=== PATIENT | male | born 1975 | race African-American/Black ===

== ENCOUNTER 2016-10-13 05:55 | Emergency (ER) | payer BC ==
[~2016-10-13] VITALS: Ht 172.7 cm; Wt 109.4 kg
[~2016-10-13 05:55] MED LIST: ONDA4TAB7 SL
[2016-10-13 05:57] VITALS: Ht 172.7 cm; Wt 109.4 kg
[2016-10-13] MEDS ORDERED: IBUP-1427 PO (06:20)
[2016-10-13] MEDS ORDERED: DIPH25CA65 PO (06:20)
[2016-10-13] MEDS ORDERED: SODIUM CHLORIDE 0.9% 1000ML 1,000 ML IV STA ×2 (06:40)
[2016-10-13] MEDS ORDERED: ACETAMINOPHEN 325 MG TAB PO ONE (06:45)
[2016-10-13] MEDS ORDERED: KETOROLAC TROMETHAMINE 30 MG/ML VIAL IV ONE (06:45)
[2016-10-13] MEDS ORDERED: ONDANSETRON INJ 2 MG/ML 2 ML VIAL IV ONE (06:45)
--- NOTE | 2016-10-13 06:49 | EMERGENCY ROOM VISIT NOTE ---
History Report prepared by Marjan: Rebecca Tejada Under the Supervision of: Madeleine GriffithsO. First contact with patient: 06:33 Chief Complaint: FLU LIKE SX Stated Complaint: CHILLS,BODYACHE,HEADACHE,SORETHROAT,DEHYDRATED History of Present Illness The patient is a 40 year old male who presents to the Emergency Room with complaints of a persistent fever that began yesterday. He also complains of body aches, a headache, sore throat, and nausea since yesterday. He currently has some diffuse abdominal pain which has been constant. He took 600 mg ibuprofen about 7.5 hours STOGIE PACKER and Benadryl about 5.5 hours STOGIE PACKER. Denies ear ache , runny nose,neck pain, cough, rash, or other complaints. No recent travel. He did not get the flu shot this year. Per patient's significant other, the patient 's son attends daycare and has exhibited some flu-like symptoms. Source of History: patient Onset: yesterday Position: other (global) Timing: other (persistent) Associated Symptoms: + abdominal pain, + nausea, + sorethroat, No cough, No rash Note: Other symptoms: body aches Review of Systems See HPI for pertinent positives & negatives. A total of 10 systems reviewed and were otherwise negative. Past Medical & Surgical Medical Problems: (1) No Known Active Medical Problems Family History Cancer Diabetes mellitus Heart disease Hypertension Social History Smoking Status: Former Smoker Alcohol Use: none Marital Status: Housing Status: lives with family Occupation Status: employed Current/Historical Medications Scheduled PRN Diphenhydramine Hcl (Benadryl Allergy), 2 CAP PO HS PRN for Sleep Ibuprofen Tab (Motrin), 600 MG PO Q6H PRN for Pain or Fever Ondasetron Odt (Zofran Odt), 4 MG SL Q6H PRN for Nausea Allergies Coded Allergies: No Known Allergies (Unverified , 10/13/16) Physical Exam Vital Signs Date Time Temp Pulse Resp B/P Pulse Ox O2 Delivery O2 Flow Rate FiO2 10/13/16 08:12 37.8 110 22 133/71 95 10/13/16 07:52 38.1 110 22 133/71 95 Room Air 10/13/16 05:57 38.1 79 21 128/83 96 Room Air Physical Exam GENERAL: The patient is a pleasant 40 year old male in mild distress. VITALS: Febrile, mildly tachypneic, normal pulse oximetry on room air. Vital signs otherwise normal. EARS: TMS dull. THROAT: Minimally injected, no exudates or tonsillar hypertrophy. Airway is patent. NECK: Supple, nontender, no lymphadenopathy or nuchal rigidity. THORAX : Symmetrical and nontender to palpation without deformity or palpable crepitus. LUNGS : Clear without wheezing, rhonchi, or rales HEART: Regular rate and rhythm ABDOMEN: Soft, minimal epigastric tenderness without guarding, rigidity, or rebound tenderness. Bowel sounds are present in all 4 quadrants. There are no palpable masses or organomegaly. No CVA tenderness. Femoral pulses are symmetrical EXTREMITIES : Without deformity or point tenderness. There are no palpable cords, edema, or erythema.. NEUROLOGIC: Intact without focal deficits SKIN: No rash. Medical Decision & Procedures Laboratory Results 10/13/16 06:58 Red Blood Count 4.95, Mean Corpuscular Volume 82.2, Mean Corpuscular Hemoglobin 28.9, Mean Corpuscular Hemoglobin Concent 35.1, Mean Platelet Volume 10.0, Neutrophils (%) (Auto) 80.4, Lymphocytes (%) (Auto) 12.8, Monocytes (%) (Auto) 6.3, Eosinophils (%) (Auto) 0.2, Basophils (%) (Auto) 0.1, Neutrophils # (Auto) 12.33, Lymphocytes # (Auto) 1.96, Monocytes # (Auto) 0.97, Eosinophils # (Auto) 0.03, Basophils # (Auto) 0.02 10/13/16 06:58 Test 10/13/16 06:58 10/13/16 07:14 White Blood Count 15.34 K/uL (4.8-10.8) Red Blood Count 4.95 M/uL (4.7-6.1) Hemoglobin 14.3 g/dL (14.0-18.0) Hematocrit 40.7 % (42-52) Mean Corpuscular Volume 82.2 fL (80-100) Mean Corpuscular Hemoglobin 28.9 pg (25-34) Mean Corpuscular Hemoglobin Concent 35.1 g/dl (32-36) Platelet Count 225 K/uL (130-400) Mean Platelet Volume 10.0 fL (7.4-10.4) Neutrophils (%) (Auto) 80.4 % Lymphocytes (%) (Auto) 12.8 % Monocytes (%) (Auto) 6.3 % Eosinophils (%) (Auto) 0.2 % Basophils (%) (Auto) 0.1 % Neutrophils # (Auto) 12.33 K/uL (1.4-6.5) Lymphocytes # (Auto) 1.96 K/uL (1.2-3.4) Monocytes # (Auto) 0.97 K/uL (0.11-0.59) Eosinophils # (Auto) 0.03 K/uL (0-0.5) Basophils # (Auto) 0.02 K/uL (0-0.2) RDW Standard Deviation 39.6 fL (36.4-46.3) RDW Coefficient of Variation 13.1 % (11.5-14.5) Immature Granulocyte % (Auto) 0.2 % Immature Granulocyte # (Auto) 0.03 K/uL (0.00-0.02) Anion Gap 9.0 mmol/L (3-11) Est Creatinine Clear Calc Drug Dose 109.2 ml/min Estimated GFR () 98.2 Estimated GFR (Non- 84.7 BUN/Creatinine Ratio 8.9 (10-20) Calcium Level 9.0 mg/dl (8.5-10.1) Total Bilirubin 0.9 mg/dl (0.2-1) Aspartate Amino Transf (AST/SGOT) 18 U/L (15-37) Alanine Aminotransferase (ALT/SGPT) 48 U/L (12-78) Alkaline Phosphatase 42 U/L (45-117) Total Protein 7.6 gm/dl (6.4-8.2) Albumin 4.0 gm/dl (3.4-5.0) Globulin 3.6 gm/dl (2.5-4.0) Albumin/Globulin Ratio 1.1 (0.9-2) Lipase 103 U/L (73-393) Influenza Type A Antigen Neg for Influ A (NEG) Influenza Type B Antigen Neg for Influ B (NEG) Laboratory studies as stated above per my review. Medications Administered Medications (Trade) Dose Ordered Sig/Kadie Route Start Time Stop Time Status Last Admin Dose Admin Sodium Chloride 1,000 ml @ 999 mls/hr Q1H1M STAT IV 10/13/16 06:40 10/13/16 07:40 DC 10/13/16 07:10 999 MLS/HR Sodium Chloride (Nss 1000ml) 1,000 ml @ 500 mls/hr Q2H STAT IV 10/13/16 06:40 10/13/16 08:39 DC 10/13/16 07:10 500 MLS/HR Ondansetron HCl (Zofran Inj) 4 mg NOW ONCE IV 10/13/16 06:45 10/13/16 06:46 DC 10/13/16 07:10 4 MG Ketorolac Tromethamine (Toradol Inj) 30 mg NOW ONCE IV 10/13/16 06:45 10/13/16 06:46 DC 10/13/16 07:10 30 MG Acetaminophen (Tylenol Tab) 650 mg NOW ONCE PO 10/13/16 06:45 10/13/16 06:46 DC 10/13/16 07:11 650 MG ED Course : 0636: The patient was evaluated in room B6. A complete history and physical examination was performed. On examination he appeared mildly ill and was complaining of diffuse myalgias,abdominal pain and a sore throat. He did have mild tenderness to the upper abdomen but did not have any peritoneal or obstructive findings. An IV of normal saline was established and he was hydrated with IV fluids. He was medicated with 4 mg of IV Zofran, 30 mg of IV Toradol and 650 mg of oral Tylenol with improvement He underwent the above diagnostic workup. CBC shows a leukocytosis. Chem profile and lipase are within normal limits except for mild hyperglycemia which is not felt to be clinically significant. Strep screen is negative. Influenza test is negative. This is a 40-year-old gentleman who presents with viral-like symptoms associated with fever, sore throat and abdominal pain. At this time workup is not suggestive of acute influenza infection, strep throat, or pancreatitis. He does have leukocytosis consistent with his illness and dehydration. Patient is being discharged home in the company of his , with instructions on symptomatic care. He is to continue taking Tylenol and/or ibuprofen for pain and fever. He has been provided a prescription for Zofran to use as needed. He should have close outpatient follow-up with his personal physician if symptoms persist. Return if worsening symptoms or concerns. Patient and his are comfortable with this treatment plan. 0640: Ordered NSS 1000 ml @ 500 mls/hr IV, NSS 1000 ml @ 999 mls/hr IV, Tylenol Tab 650 mg PO, Toradol Inj 30 mg IV, Zofran Inj 4 mg IV. 0742: I reassessed the patient. He was sleeping and feeling better. 0759: Reevaluated the patient. Discussed results and discharge instructions; He verbalized understanding and agreement. The patient was discharged home. Medical Decision EMR, nurse's notes, diagnostic studies personally reviewed Differential diagnosis-see above The chart was completed utilizing [employer] Speech Voice Recognition Software. Grammatical errors, random word insertions, pronoun errors, and incomplete sentences are an occasional consequence of this system due to software limitations, ambient noise, and hardware issues. Any formal questions or concerns about the content, text, or information contained within the body of this dictation should be directly addressed to the physician for clarification. Impression Primary Impression: Febrile illness Additional Impressions: Pharyngitis Abdominal pain Scribe Attestation The scribe's documentation has been prepared under my direction and personally reviewed by me in its entirety. I confirm that the note above accurately reflects all work, treatment, procedures, and medical decision making performed by me. Departure Information Dispostion Home / Self-Care Prescriptions Ondasetron Odt (ZOFRAN ODT) 4 Mg Tab 4 MG SL Q6H Y for Nausea, #6 TAB Prov: Inés Moulton,D.O. 10/13/16 Referrals No Doctor, Assigned (PCP) Forms HOME CARE DOCUMENTATION FORM, IMPORTANT VISIT INFORMATION Patient Instructions Abdominal Pain - [facility], Fever - [facility], [facility], Sore Throat - [facility] Additional Instructions Rest, keep well-hydrated Take Tylenol and/or ibuprofen for pain and fever 1 Zofran, dissolve your tongue, every 4-6 hours as needed for nausea Follow-up with your family doctor symptoms persist Return if worsening symptoms or concerns Problem Qualifiers
[2016-10-13 07:09] LABS: BASO % 0.1 %; BASO ABS # 0.02 K/uL (0-0.2); COMPLETE YES; EOS % 0.2 %; HEMATOCRIT 40.7 % (42-52); IG% 0.2 %; LYMPH % 12.8 %; LYMPH ABS # 1.96 K/uL (1.2-3.4); MEAN CELL VOLUME 82.2 fL (80-100); MEAN CORPUSCULAR HEMOGLOBIN 28.9 pg (25-34); MEAN CORPUSCULAR HGB CONC 35.1 g/dl (32-36); MONO % 6.3 %; NEUT % 80.4 %; PLATELET COUNT 225 K/uL (130-400); RED BLOOD COUNT 4.95 M/uL (4.7-6.1); WHITE BLOOD COUNT 15.34 K/uL (4.8-10.8)
[2016-10-13 07:24] LABS: BUN/CREATININE RATIO 8.9 (10-20); CREATININE 1.1 mg/dl (0.60-1.40); POTASSIUM 3.9 mmol/L (3.5-5.1)
[2016-10-13 07:28] LABS: ALB/GLOB RATIO 1.1 (0.9-2)
[2016-10-13] MEDS ORDERED: ONDA4TAB10 SL (08:03)
[2016-10-13 08:12] VITALS: BP 133/71; PULSE 110; TEMP 37.8; O2SAT 95
--- NOTE | 2016-10-14 15:43 | Pharmacy Progress Note ---
ED Pharmacist Culture FollowUp Date of Service: Oct 14, 2016. Called patient regarding throat culture with Group A Strep. Prescription for penicillin V 500 mg po BID x 10 days called to [facility] at the patient's request. Case discussed with Dr. Pace, who is the prescribing provider.
== END 2016-10-13 08:14 | disposition home or self-care (01) ==
LOC: C.EDB 05:56
DX: R50.9 Fever, unspecified (principal); J02.9 Acute pharyngitis, unspecified; R10.9 Unspecified abdominal pain; Z83.3 Family history of diabetes mellitus; Z82.49 Family history of ischemic heart disease and other diseases of the circulatory system; Z87.891 Personal history of nicotine dependence

== ENCOUNTER → 2017-08-05 | Outpatient (CLI) | payer OTHER ==
[~2017-08-05] VITALS: Ht 172.7 cm; Wt 106.4 kg
[~2017-08-05] MED LIST changes: +DIPH25CA65 PO; +IBUP-1427 PO; -ONDA4TAB7 SL
[2017-08-05 15:17] VITALS: BP 116/108; PULSE 81; BMI 35.4
[2017-08-05 15:41] VITALS: BP 146/108; PULSE 81; Ht 172.7 cm; Wt 106.4 kg
[2017-08-05 15:42] VITALS: BP 145/105; PULSE 75
== END | disposition home or self-care (01) ==
LOC: C.NEUR 14:40
PROVIDERS: ATTEND Internal Medicine Pulmonary Disease
DX: G47.33 Obstructive sleep apnea (adult) (pediatric) (principal)

== ENCOUNTER → 2017-08-23 | Outpatient (CLI) | payer OTHER ==
--- NOTE | 2017-08-24 06:07 | PAP/PSG TECHNICIAN REPORT ---
[facility] Pedigree Researcher Polysomnogram Report Study name: None Report date: 08/24/2017 Study date: 08/23/2017 Referring Physician: Dr. Skip Julien DO Name: ISMAEL RAMESH Interpreting Physician: Skip Julien D.O. Date of : 1975 Pedigree Researcher: SOPHIA Staples. Sex: Male Age: 41 StudyType: PSG Weight: 234.5 lbs Height: 41 years, Height 5' 8.25" Neck Circum: 18.5 inches BMI: 35.39 Medications: Atorvastatin Patient History 41 yr. old male here for a diagnostic sleep study. Patient complains of witnessed apneas, loud snoring, and wakes up gasping for air. ESS 01/09 Parameters Monitored NPSG: E1-M2, E2-M1, Fp1-M2, Fp2-M1, F3-M2, F4-M2, F4-M1, C3-M2, C4-M2, C4-M1, O1-M2, O2-M2, O2-M1, T3-M2, T4-M1, P3-M2, P4-M1, CHIN1, CHIN2, HR, EKG, Legs, PFLOW, SNOR, FLOW, CFLOW, Tidal Volume, THOR, ABDO, SpO2, PLTH, CPRESS, ETCO2 Wave, ETCO2, pH Sleep Architecture Sleep Stages Time at Lights Off 10:08:44 PM STAGES Time (min.) TST (%) Time at Lights On 5:34:44 AM Wake 100.5 -- Total Recording Time (TRT) 445.50 min. N1 48.0 14 Total Sleep Period (TSP) 388.0 min. N2 222.0 64 Total Sleep Time (TST) 345.0min. N3 18.5 5 Awake Time 100.5 min. REM 56.5 16 Wake after Sleep Onset 43.5 min. Sleep Efficiency (SE) 77 % Sleep Onset Latency (KONRAD) 57.5 min. Number of Stage 1 Shifts None Awakenings 19 Stage Changes 104 Number of REM periods 7 REM 56.5 16 REM Latency 135.5 min. NREM 288.5 84 Body Position Analysis Supine Right Left Side Prone Vertical Total Sleep Time (min.) 147.3 192.5 64.0 256.47 0.0 2.4 Total Sleep Time (%) 26% 56% 19% 74 0% N/A% Total Sleep Time REM (min.) 0.0 32.0 24.5 None 0.0 0.0 Total Sleep Time NREM (min.) 88.5 160.5 39.5 None 0.0 0.0 Intermittent Wake (min.) 58.7 36.2 3.2 None 0.0 2.4 Total Sleep Period (%) 27% None None None None None Arousals Myoclonus (PLM) * Events Count Index Events Count Index Spontaneous 15 3 Events Awake (PLMW) 106 63.3 Respiratory 6 1.2 Events Asleep w/ Arousal (PLMA) 14 2.4 PLM 14 2 Events Asleep w/o Arousal (PLMS) 29 5.0 Snoring 27 5 Total Asleep 43 7.5 Total 62 11 Total 149 20 Respiratory Analysis * CA OA MA CH H RERA Total Count 0 1 0 0 52 0 53 Index 0.0 0.2 0.0 0 9.0 0 9.2 Mean Duration 0.0 12.6 0.0 0.00 25.4 0.0 25.2 Longest Duration 0.0 12.6 0.0 0.00 0.0 0.0 66.0 Respiratory Event Summary Total Supine ~Supine Right Left Prone REM NREM Apneas Count 1 1 0 0 0 N/A 0 1 Index 0.2 1 0 0.0 0.0 N/A 0 0 Hypopneas (4% Desat) Count 52 38 14 9 5 N/A 10 42 Index 9.0 25.8 3 2.8 4.7 N/A 10.6 8.7 Apneas & All Hypopneas Count 53 39 14 9 5 N/A 10 43 Index 9.2 26 3 3 5 N/A 10.6 8.9 Respiratory Events (Director Of Advertising Sales+All Hyp+RERA) Count 53 39 14 9 5 N/A 10 43 Index 9.2 26 3 2.8 4.7 N/A 10.6 8.9 Respiratory Related Arousal Count 6 39 1 0 1 N/A 0 7 Index 1.2 4 0 0 1 N/A 0 1 Snoring Analysis Supine Right Left Prone REM NREM Total Snore duration 40.6 min Snores count 240 1,317 211 N/A 72 1,696 1,768 Snore mean duration 1.4 Sec Snores index 163 411 198 N/A 76.5 352.7 307.5 TST with snoring (%) 11.8% Desaturation Event Summary: Minimum %SpO2 Event Count Mean/Min/Max Duration(sec.) Desaturation Index % Time In Bed > 90 58 30.1 / 8.0 / 60.0 8.0 98.3 86 - 90 0 N/A 0.0 1.7 81 - 85 0 N/A 0.0 0.0 76 - 80 0 N/A 0.0 0.0 71 - 75 0 N/A 0.0 0.0 66 - 70 0 N/A 0.0 0.0 61 - 65 0 N/A 0.0 0.0 56 - 60 0 N/A 0.0 0.0 51 - 55 0 N/A 0.0 0.0 < 50 0 N/A 0.0 0.0 Total REM NREM Awake <50% 0.0 min. 0.0 min. 0.0 min. 0.0 min. 51 - 60% 0.0 min. 0.0 min. 0.0 min. 0.0 min. 61 - 70% 0.0 min. 0.0 min. 0.0 min. 0.0 min. 71 - 80% 0.0 min. 0.0 min. 0.0 min. 0.0 min. 81 - 90% 7.3 min. 3.5 min. 3.3 min. 0.6 min. 91 - 100% 436.9 min. 52.9 min. 285.2 min. 98.8 min. Average 95 94 94 96 Minimum SpO2 86 89 86 90 Desaturation Event Index 7.8 15.9 8.1 3.0 # Desat. Events below 89% 3 N/A 3 N/A Time(%) with Saturation below 89% 0.1 0.0 0.1 0.0 Time(min.) with Saturation below 89% 0.4 0.0 0.4 0.0 Time (mins) REM (mins) NREM (mins) % of TST SpO2 Below 90% 21 5 N16 0.6 SpO2 Below 88% 1 0 0 0 Heart Rate Analysis Min (bpm) Max (bpm) Average (bpm) Awake 61 105 80 NREM 59 93 75 REM 58 127 73 Overall 58 127 75 Supplemental O2 Values Minimum O2 level: None Value Start Time End Time Pedigree Researcher Comments slept in the right, left, and supine positions. No cardiac arrhythmia. PLMs noted. No bruxism noted. Snoring was noted and scored as a 4 on a scale of 0 through 5. (0=no snoring, 5=snoring loud enough to be heard through a closed door or down the [address] way) did not wake to use the restroom during the night. stated, I did not sleep as well as I do when I am in my own bed. The final report will be interpreted and signed by a sleep physician. The completed physician report will then be placed in the patient medical record. Therapy (cm H2O) 0 TIB (min.) 445.5 TST (min.) 345.0 Sleep Onset (min.) 57.5 REM Onset From Sleep (min.) 135.5 Sleep Efficiency % 77 Wakefulness (%) 23 Wakefulness (min.) 100.5 NREM 1 (%) 14 NREM 1 (min.) 48.0 NREM 2 (%) 64 NREM 2 (min.) 222.0 NREM 3 (%) 5 NREM 3 (min.) 18.5 REM (%) 16 REM (min.) 56.5 # Arousals 62 Arousal Index 11 # Snore 1,768 Snore Index 307.5 AHI 9.2 AHI Supine 26 AHI Non-Supine 3 NREM AHI 8.9 REM AHI 10.6 RDI 9.2 # Obstructive Apnea 1 # Central Apnea 0 # Mixed Apnea 0 # Hypopneas 52 RERAs 0 Total Respiratory Events 54 Time Below SpO2 89% (min.) 0.4 Mean NREM SpO2 (%) 94 Mean REM SpO2 (%) 94 Mean Sleep SpO2 (%) 94 Min NREM SpO2 (%) 86 Min REM SpO2 (%) 89 Position Supine (min.) 147.3 Position Non-supine (min.) 256.5 LM Index Sleep 7.5 LM Index NREM 7.9 LM Index REM 5.3 Mean Heart Rate (bpm) 75 Min Heart Rate (bpm) 58
--- NOTE | 2017-08-25 12:25 | Sleep Study ---
Sleep Study Report Date of Service: 08/23/2017 Sleep Study Report CLINICAL DATA: The patient is a 41-year-old male with a chief complaint of snoring, nocturnal gasping, and decreased energy. He has hypertension. His BMI is 35.39. His Harmans Sleepiness Scale score is 6. This was an in-lab overnight polysomnography. SLEEP ARCHITECTURE: The sleep period time was 388 minutes. The total sleep time was 345 minutes. The sleep efficiency was 77 percent which would be moderately decreased. The sleep latency was prolonged to 57.5 minutes. REM latency was prolonged to 135.5 minutes. Sleep consisted of stage N1 14 percent, stage N2 64 percent, stage N3 5 percent, stage REM 16 percent. AROUSAL DATA: The patient had a total of 62 arousals including 15 spontaneous arousals, 6 respiratory arousals, 14 PLM arousals, and 27 snoring arousals. The arousal index is 11. PLM DATA: The patient had a total of 43 periodic limb movements of sleep for a PLM index of 7.5. There were 14 arousals associated with limb movements for a PLM arousal index of 2.4. EKG: The underlying cardiac rhythm was normal sinus. The lowest heart rate was 58 per minute. The average heart rate was 75 beats per minute. No cardiac arrhythmias were noted. RESPIRATORY DATA: The patient had a total of 53 respiratory events including 1 obstructive apnea and 52 hypopneas. Hypopneas were scored according to the 4 percent desaturation rule. The apnea was 12.6 seconds in length. The mean duration of the hypopneas was 25.4 seconds. The apnea-hypopnea index was 9.2 events per hour. This reflects mild sleep apnea. OXIMETRY DATA: The average saturation for the night was 95 percent. The minimum saturation was 86 percent. There was 0.4 minutes with saturations less than 89 percent. RECREATION THERAPIST COMMENTS: The patient slept on the right, left, and supine positions. No cardiac arrhythmia. PLMS noted. No bruxism noted. Snoring was noted and scored as a 4 on a scale of 0 through 5. The patient did not awaken to use the restroom during the night. IMPRESSIONS: 1. Mild obstructive sleep apnea COMMENTS: The patient had a decreased sleep efficiency mainly related to a markedly prolonged sleep latency. Once he fell asleep his sleep was fairly well consolidated. He had mild sleep apnea. Most of the events were hypopneas. There was no significant oxygen desaturations. The patient had a small number of limb movements. In light of his symptoms in his history of hypertension treatment is advised. RECOMMENDATIONS: 1. It is suggested that the patient be treated with nasal CPAP. This can be accomplished either by treatment with auto CPAP or by referral to the Sleep Lab for a CPAP titration. 2. Weight loss is advised in light of the elevation of body mass index at 35.39. 3. If possible patient should avoid sleeping in the supine position. During this study his apnea-hypopnea index supine was elevated at 26 events per hour. Copies To 1: Skip Julien DO; Carmita Mccurdy M.D.; Chanda Cheney M.D.
== END | disposition home or self-care (01) ==
LOC: C.NEUR 21:00
PROVIDERS: ATTEND Internal Medicine Pulmonary Disease
DX: G47.33 Obstructive sleep apnea (adult) (pediatric) (principal); I10 Essential (primary) hypertension; E66.9 Obesity, unspecified; Z68.35 Body mass index [BMI] 35.0-35.9, adult; E78.00 Pure hypercholesterolemia, unspecified; F17.290 Nicotine dependence, other tobacco product, uncomplicated